=== PATIENT | female | born 1995 | race African-American/Black ===

== ENCOUNTER 2019-02-01 18:03 | Emergency (ER) | payer OTHER ==
[~2019-02-01] VITALS: Ht 157.5 cm; Wt 78.5 kg
[2019-02-01 18:03] VITALS: BP 107/59
[2019-02-01] MEDS ORDERED: IBUPROFEN 600 MG TABLET. PO ONE (18:30)
[2019-02-01] MEDS ORDERED: MELO7.5T29 PO (18:55)
[2019-02-01] MEDS ORDERED: TRAM50TA PO (18:55)
--- NOTE | 2019-02-01 18:55 | PHYS DOC ---
Past History Past Medical History: Asthma Past Surgical History: No Surgical History Smoking: Non-smoker Alcohol Use: Occasionally Drug Use: None Adult General Chief Complaint Chief Complaint: KNEE INJURY HPI HPI Patient is a 23-year-old female presents complaining of left knee pain. At approximately 2 this afternoon she twisted and fell with her knee going in one direction and body going in the other direction. Increased pain with movement and ambulation. She has been borrowing her mother's walker and able to ambulate with that. No home medicine has been taken. She is able to partially weight- bear. There is no radiation of the discomfort. Discomfort is sharp. Moderate at baseline and severe with movement. No previous history of knee injury.[] Review of Systems Review of Systems Constitutional: Denies fever or chills [] Eyes: Denies change in visual acuity, redness, or eye pain [] HENT: Denies nasal congestion or sore throat [] Respiratory: Denies cough or shortness of breath [] Cardiovascular: No chest pain or palpitations[] GI: Denies abdominal pain, nausea, vomiting, bloody stools or diarrhea [] : Denies dysuria or hematuria [] Musculoskeletal: Denies back pain, see history of present illness[] Integument: Denies rash or skin lesions [] Neurologic: Denies headache, focal weakness or sensory changes [] Endocrine: Denies polyuria or polydipsia [] All other systems were reviewed and found to be within normal limits, except as documented in this note. Current Medications Current Medications Current Medications Medications (Trade) Dose Ordered Sig/Sebastián Start Time Stop Time Status Last Admin Dose Admin Ibuprofen (Motrin) 600 mg 1X ONCE 02/01/19 18:30 02/01/19 18:31 UNV Allergies Allergies Allergies Coded Allergies Type Severity Reaction Last Updated Verified No Known Drug Allergies 02/01/19 No Physical Exam Physical Exam Constitutional: Well developed, well nourished, no acute distress, non-toxic appearance. [] HENT: Normocephalic, atraumatic, bilateral external ears normal, oropharynx moist, no oral exudates, nose normal. [] Eyes: PERRLA, EOMI, conjunctiva normal, no discharge. [] Neck: Normal range of motion, no tenderness, supple, no stridor. [] Cardiovascular:Heart rate regular rhythm, no murmur [] Lungs & Thorax: Bilateral breath sounds clear to auscultation [] Abdomen: Not examined[] Skin: Warm, dry, no erythema, no rash. [] Back: No tenderness, no CVA tenderness. [] Extremities: Left knee has tenderness to palpation along the medial aspect. Range of motion is from 90� to 10�. No varus or valgus laxity. Negative Galindo, negative drawer test. A joint above and joined below were evaluated and were normal. There is no ballotable patella. No erythema, no edema, no effusion. The other 3 extremities show: No tenderness, no cyanosis, no clubbing, ROM intact, no edema. [] Neurologic: Alert and oriented X 3, normal motor function, normal sensory function, no focal deficits noted. [] Psychologic: Affect normal, judgement normal, mood normal. [] Current Patient Data Vital Signs Vital Signs Date Time Temp Pulse Resp B/P (MAP) Pulse Ox O2 Delivery O2 Flow Rate FiO2 02/01/19 18:03 99.1 111 22 98 Room Air EKG EKG [] Radiology/Procedures Radiology/Procedures Three-view x-ray of the left knee shows no evidence of a fracture or dislocation.[] Course & Med Decision Making Course & Med Decision Making Pertinent Labs and Imaging studies reviewed. (See chart for details) ED course: Patient arrived, was placed in bed, and tolerated exam well. She was transferred to and from radiology with any complications. After the return of the imaging findings, these were discussed with the patient voiced understanding. Knee immobilizer was placed. She was distally neurovascularly intact after splint application. She was trained in the use of crutches. She was discharged in improved condition with all questions answered. Medical decision making: There is no evidence of a fracture or dislocation. No evidence of significant ligamentous or tendinous injury.[] Dragon Disclaimer Dragon Disclaimer This electronic medical record was generated, in whole or in part, using a voice recognition dictation system. Departure Departure: Impression: Primary Impression: Left knee sprain Disposition: HOME, SELF-CARE Condition: IMPROVED Referrals: PCP,NO (PCP) Patient Instructions: Combined Knee Ligament Sprain-SportsMed, Crutch Use, Knee Immobilizer-Brief Additional Instructions: Follow-up with your regular doctor in 2 days. If you do not have a regular doctor a list of local clinics will be provided. Return to the ER if worsening pain or any other concerns. Scripts Tramadol Hcl (TRAMADOL HCL) 50 Mg Tablet 50 MG PO PRN Q6HRS PRN for PAIN, #20 TAB Prov: COLLEEN ROBERTO DO 02/01/19 Meloxicam (MELOXICAM) 7.5 Mg Tablet 7.5 MG PO DAILY for PAIN, #20 TAB Prov: COLLEEN ROBERTO DO 02/01/19 Problem Qualifiers Primary Impression: Left knee sprain Encounter type: initial encounter Involved ligament of knee: unspecified ligament Qualified Codes: S83.92XA - Sprain of unspecified site of left knee, initial encounter COLLEEN ROBERTO DO Feb 01, 2019 18:55
--- NOTE | 2019-02-01 22:31 | RAD ---
KNEE LEFT 4V INDICATION: Fall, knee pain COMPARISON: None. FINDINGS: No displaced fracture or malalignment. The joint spaces are maintained. Bony mineralization is normal for the patient's age. No significant soft tissue abnormality. No radiopaque foreign body. IMPRESSION: No displaced fracture or malalignment. Electronically signed by: Amado Sheridan MD (02/01/2019 10:29 PM) [facility]
== END 2019-02-01 18:58 | disposition home or self-care (01) ==
LOC: ER 18:03
DX: S83.92XA Sprain of unspecified site of left knee, initial encounter (principal); J45.909 Unspecified asthma, uncomplicated; W01.0XXA Fall on same level from slipping, tripping and stumbling without subsequent striking against object, initial encounter; Y93.89 Activity, other specified; Y92.89 Other specified places as the place of occurrence of the external cause; Y99.8 Other external cause status
CPT/HCPCS: 29505; 73564; 99284